=== PATIENT | female | born 1970 | race Caucasian/White ===

== ENCOUNTER 2018-11-19 14:07 | Emergency (ER) | payer BC, OTHER, SELFPAY ==
[~2018-11-19] VITALS: Ht 154.9 cm; Wt 77.6 kg
[2018-11-19 14:20] VITALS: BP 124/56
== END 2018-11-19 16:29 | disposition home or self-care (01) ==
LOC: ED 16:14
DX: S33.5XXA Sprain of ligaments of lumbar spine, initial encounter (principal); S39.012A Strain of muscle, fascia and tendon of lower back, initial encounter; X50.0XXA Overexertion from strenuous movement or load, initial encounter; Y93.89 Activity, other specified; Y92.89 Other specified places as the place of occurrence of the external cause; Y99.8 Other external cause status
CPT/HCPCS: 72110; 96372; 99283; J1885

== ENCOUNTER 2019-03-31 00:01 | Emergency (ER) | payer OTHER ==
[~2019-03-31] VITALS: Ht 154.9 cm; Wt 80.0 kg
--- NOTE | 2019-03-31 00:08 | NUR ---
EKG DONE IN TRIAGE
[2019-03-31] MEDS ORDERED: IBUPROFEN 600 MG TABLET PO ONE (01:30)
[2019-03-31 01:40] LABS: RAPID INFLUENZA A Negative (Negative); RAPID INFLUENZA B Negative (Negative)
[2019-03-31 01:53] VITALS: BP 115/78
[2019-03-31] MEDS ORDERED: IBUPROFEN 600 MG TABLET ONE (02:15)
== END 2019-03-31 03:03 | disposition home or self-care (01) ==
LOC: ED 02:53
DX: J00 Acute nasopharyngitis [common cold] (principal); J45.909 Unspecified asthma, uncomplicated; Z90.710 Acquired absence of both cervix and uterus
CPT/HCPCS: 71046; 87400; 93005; 99284

== ENCOUNTER 2019-05-17 13:29 | Emergency (ER) | payer OTHER ==
[~2019-05-17] VITALS: Ht 154.9 cm; Wt 97.5 kg
--- NOTE | 2019-05-17 13:55 | NUR ---
PT HERE WITH C/O C/P, COUGH, SOB, N/V/D, FATIGUE X 2 DAYS. PT AAO X 4, NAD, ROOM AIR, CALL LIGHT WITHIN REACH. PIV ESTABLISHED AND LABS DRAWN AND SENT. PT DRESSED IN GOWN AND ON FULL MONITOR. 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 SIDERAIL X [address] MD AT BEDSIDE FOR EXAM.
[2019-05-17] MEDS ORDERED: LORazepam 2 MG/ML, 1ML IVPush ONE (14:00)
[2019-05-17] MEDS ORDERED: SODIUM CHLORIDE FLUSH 10ML SYR IVF ONE (14:00)
[2019-05-17] MEDS ORDERED: KETOROLAC 30 MG/1 ML IVPush ONE (14:00)
--- NOTE | 2019-05-17 14:02 | NUR ---
PT BACK FROM RADIOLOGY.
[2019-05-17] MEDS ORDERED: KETOROLAC 30 MG/1 ML ONE (14:07)
[2019-05-17] MEDS ORDERED: LORazepam 2 MG/ML, 1ML ONE (14:08)
[2019-05-17 14:09] LABS: BASOPHILS # (AUTO) 0.03 x10^3/uL (0-0.1); BASOPHILS % (AUTO) 1 % (0-1); EOSINOPHILS # (AUTO) 0.15 x10^3/uL (0-0.4); EOSINOPHILS % (AUTO) 3 % (1-7); LYMPHOCYTES # (AUTO) 1.86 x10^3/uL (1-3.4); LYMPHOCYTES % (AUTO) 31 % (22-44); MD NO; MEAN CORPUSCULAR HEMOGLOBIN 32.1 pg (27.0-34.8); MEAN CORPUSCULAR HGB CONC 32.6 g/dL (32.4-35.8); MEAN CORPUSCULAR VOLUME 98.5 fL (80-100); MEAN PLATELET VOLUME 9.1 fL (7.4-10.4); MONOCYTES # (AUTO) 0.55 x10^3/uL (0.2-0.8); MONOCYTES % (AUTO) 9 % (2-9); NEUTROPHILS # (AUTO) 3.34 x10^3/uL (1.8-6.8); NEUTROPHILS % (AUTO) 56 % (42-75); PLATELET COUNT 325 x10^3/uL (130-400); RED BLOOD COUNT 4.19 x10^6/uL (3.82-5.3); RED CELL DISTRIBUTION WIDTH 14.3 % (9.6-15.2)
[2019-05-17 14:13] VITALS: BP 114/51
--- NOTE | 2019-05-17 14:16 | NUR ---
Break RN note: Pt medicated for pain per MAR, denies other needs.
[2019-05-17 14:20] LABS: ALANINE AMINOTRANSFERASE 20 U/L (12-78); ALBUMIN 4.1 g/dL (3.4-5.0); ANION GAP 7 mmol/L (5-15); CALCIUM 9.2 mg/dL (8.5-10.1); CHLORIDE 108 mmol/L (98-107)
[2019-05-17 14:25] LABS: ALKALINE PHOSPHATASE 56 U/L (45-117); BILIRUBIN,TOTAL 0.8 mg/dL (0.2-1.0); TOTAL PROTEIN 8.2 g/dL (6.4-8.2); TROPONIN I < 0.015 ng/mL (0.000-0.045)
--- NOTE | 2019-05-17 15:26 | NUR ---
ALL RESULTS BACK AT THIS TIME, CHART UP FOR RECHECK.
--- NOTE | 2019-05-17 16:01 | NUR ---
Patient/Caregiver given discharge instructions and they have confirmed that they understand the instructions. Patient ambulatory with steady gait.
== END 2019-05-17 16:11 | disposition home or self-care (01) ==
LOC: ED 16:05
DX: R07.89 Other chest pain (principal); R11.2 Nausea with vomiting, unspecified; R19.7 Diarrhea, unspecified; J45.909 Unspecified asthma, uncomplicated; Z90.710 Acquired absence of both cervix and uterus
CPT/HCPCS: 36415; 71046; 80053; 84484; 85025; 85379; 93005; 96374; 96375; 99285; J1885; J2060

== ENCOUNTER 2019-06-14 18:00 | Emergency (ER) | payer OTHER, SELFPAY ==
[~2019-06-14] VITALS: Ht 154.9 cm; Wt 80.0 kg
--- NOTE | 2019-06-14 18:39 | NUR ---
PT CAME IN CO OF COUGH, CHILLS, NAUSEA SINCE THIS MORNING. SAYS SHE CAME INTO CONTACT WITH SOMEONE WHO SAID THEY WERE POSITIVE FOR COVID-19. PT IS ON ISOLATIONG. FLU SWAB, STREP, COVID SWAB TAKEN. PT RESTING [facility].
[2019-06-14] MEDS ORDERED: ONDANSETRON ODT 8 MG ONE (18:59)
[2019-06-14] MEDS ORDERED: ACETAMINOPHEN 500 MG TABLET ONE (18:59)
[2019-06-14 19:00] LABS: BASOPHILS # (AUTO) 0.03 x10^3/uL (0-0.1); BASOPHILS % (AUTO) 1 % (0-1); EOSINOPHILS # (AUTO) 0.11 x10^3/uL (0-0.4); EOSINOPHILS % (AUTO) 2 % (1-7); LYMPHOCYTES % (AUTO) 25 % (22-44); MD NO; MEAN CORPUSCULAR HEMOGLOBIN 31.8 pg (27.0-34.8); MEAN CORPUSCULAR HGB CONC 33.5 g/dL (32.4-35.8); MEAN PLATELET VOLUME 8.8 fL (7.4-10.4); MONOCYTES # (AUTO) 0.49 x10^3/uL (0.2-0.8); MONOCYTES % (AUTO) 8 % (2-9); NEUTROPHILS # (AUTO) 4.15 x10^3/uL (1.8-6.8); NEUTROPHILS % (AUTO) 65 % (42-75); PLATELET COUNT 295 x10^3/uL (130-400); RED BLOOD COUNT 3.92 x10^6/uL (3.82-5.3); RED CELL DISTRIBUTION WIDTH 13.5 % (9.6-15.2)
[2019-06-14] MEDS ORDERED: ACETAMINOPHEN 500 MG TABLET PO ONE (19:00)
[2019-06-14] MEDS ORDERED: ONDANSETRON ODT 4 MG PO ONE (19:00)
[2019-06-14 19:12] LABS: ALBUMIN 3.8 g/dL (3.4-5.0); ANION GAP 8 mmol/L (5-15); CHLORIDE 108 mmol/L (98-107); CREATININE 0.72 mg/dL (0.55-1.02)
[2019-06-14 19:16] LABS: RAPID INFLUENZA A Negative (Negative); RAPID INFLUENZA B Negative (Negative)
[2019-06-14 19:57] VITALS: BP 112/52
== END 2019-06-14 19:59 | disposition home or self-care (01) ==
LOC: ED 19:40
DX: J06.9 Acute upper respiratory infection, unspecified (principal); Z20.828 Contact with and (suspected) exposure to other viral communicable diseases; M79.10 Myalgia, unspecified site; J45.909 Unspecified asthma, uncomplicated; F17.200 Nicotine dependence, unspecified, uncomplicated; Z90.710 Acquired absence of both cervix and uterus
CPT/HCPCS: 36415; 71045; 80048; 82040; 83605; 85025; 87081; 87400; 87486; 87581; 87633; 87798; 87880; 99284; Q0162

== ENCOUNTER 2019-10-17 08:54 | Emergency (ER) | payer SELFPAY ==
[~2019-10-17] VITALS: Ht 154.9 cm; Wt 86.0 kg
[2019-10-17] MEDS ORDERED: amberen (09:37)
[2019-10-17] MEDS ORDERED: MV,I66.7 PO (09:37)
[2019-10-17] MEDS ORDERED: GING250C PO (09:38)
[2019-10-17] MEDS ORDERED: MAGN400T36 PO (09:38)
[2019-10-17] MEDS ORDERED: MAALOX/HYOSCYAMINE/LIDOCAINE 45 ML BTL ONE (09:45)
[2019-10-17 10:23] LABS: BASOPHILS # (AUTO) 0.03 x10^3/uL (0-0.1); BASOPHILS % (AUTO) 1 % (0-1); EOSINOPHILS # (AUTO) 0.14 x10^3/uL (0-0.4); EOSINOPHILS % (AUTO) 2 % (1-7); LYMPHOCYTES % (AUTO) 28 % (22-44); MD NO; MEAN CORPUSCULAR HGB CONC 32.6 g/dL (32.4-35.8); MEAN CORPUSCULAR VOLUME 95.2 fL (80-100); MEAN PLATELET VOLUME 8.9 fL (7.4-10.4); MONOCYTES # (AUTO) 0.58 x10^3/uL (0.2-0.8); MONOCYTES % (AUTO) 9 % (2-9); NEUTROPHILS # (AUTO) 4.03 x10^3/uL (1.8-6.8); NEUTROPHILS % (AUTO) 60 % (42-75); PLATELET COUNT 272 x10^3/uL (130-400); RED BLOOD COUNT 4.13 x10^6/uL (3.82-5.3); RED CELL DISTRIBUTION WIDTH 13.9 % (9.6-15.2)
[2019-10-17] MEDS ORDERED: MAALOX/HYOSCYAMINE/LIDOCAINE 45 ML BTL PO ONE (10:30)
[2019-10-17 10:35] LABS: ALBUMIN 3.8 g/dL (3.4-5.0); ANION GAP 8 mmol/L (5-15); CALCIUM 9.1 mg/dL (8.5-10.1); CHLORIDE 110 mmol/L (98-107)
[2019-10-17 10:42] LABS: ALANINE AMINOTRANSFERASE 21 U/L (12-78); ALKALINE PHOSPHATASE 52 U/L (45-117); BILIRUBIN,TOTAL 0.5 mg/dL (0.2-1.0); CREATININE 0.72 mg/dL (0.55-1.02); TOTAL PROTEIN 7.4 g/dL (6.4-8.2); TROPONIN I < 0.015 ng/mL (0.000-0.045)
[2019-10-17 10:50] VITALS: BP 117/61
--- NOTE | 2019-10-17 10:55 | NUR ---
NOTIFIED MERCEDES HAWKINS THAT PATIENT REPORTED SOME RELIEF OF THE "TENSION" THAT SHE FELT IN HER CHEST/EPIGASTRUM BUT NO RELIEF OF THE BURNING SENSATION AND THAT PATIENT STILL FEELS SHORT OF BREATH. ROSS TO ORDER A RESPIRATORY TREATMENT. PATIENT UPDATED ON PLAN OF CARE AND IS APPRECIATIVE OF BREATHING TREATMENT.
[2019-10-17] MEDS ORDERED: ALBUTEROL SULFATE 2.5 MG/3 ML NPPB ONE (11:00)
[2019-10-17] MEDS ORDERED: ALBUTEROL SULFATE 2.5 MG/3 ML ONE (11:22)
--- NOTE | 2019-10-17 12:01 | NUR ---
NOTIFIED DR. ROMEO THAT AFTER BREATHING TREAMENT PATIENT STATES HER BREATHING FEELS BETTER BUT THE CHEST PAIN REMAINS.
--- NOTE | 2019-10-17 12:15 | NUR ---
Patient given discharge instructions and they have confirmed that they understand the instructions. Patient ambulatory with steady gait.
== END 2019-10-17 12:32 | disposition home or self-care (01) ==
LOC: ED 09:49
DX: J45.31 Mild persistent asthma with (acute) exacerbation (principal); Z20.828 Contact with and (suspected) exposure to other viral communicable diseases; R07.89 Other chest pain; R06.00 Dyspnea, unspecified
CPT/HCPCS: 36415; 71045; 80053; 84484; 85025; 87635; 93005; 94640; 99285; J7512; J7613

== ENCOUNTER 2020-01-28 19:40 | Emergency (ER) | payer SELFPAY ==
[~2020-01-28] VITALS: Ht 154.9 cm; Wt 81.9 kg
[~2020-01-28 19:40] MED LIST: GING250C PO; MAGN400T36 PO; MV,I66.7 PO; amberen
--- NOTE | 2020-01-28 20:28 | NUR ---
WORKS AT [employer], LEFT WORK FEELING BODY ACHES, COUGH, FEVER. VSS. WAITING FOR ERP EVAL.
--- NOTE | 2020-01-28 21:05 | NUR ---
VSS, NO FEVER, HR WNL. DEFER IV START UNTIL EVALUATED BY ERP.
[2020-01-28] MEDS ORDERED: ONDANSETRON ODT 4 MG ONE (21:12)
[2020-01-28 21:30] LABS: BASOPHILS % (AUTO) 1 % (0-1); EOSINOPHILS % (AUTO) 2 % (1-7); LYMPHOCYTES % (AUTO) 26 % (22-44); MEAN CORPUSCULAR HEMOGLOBIN 30.9 pg (27.0-34.8); MEAN CORPUSCULAR HGB CONC 32.8 g/dL (32.4-35.8); MEAN PLATELET VOLUME 8.9 fL (7.4-10.4); MONOCYTES % (AUTO) 21 % (2-9); NEUTROPHILS % (AUTO) 50 % (42-75); PLATELET COUNT 238 x10^3/uL (130-400); RED BLOOD COUNT 3.91 x10^6/uL (3.82-5.3); RED CELL DISTRIBUTION WIDTH 13.9 % (9.6-15.2)
[2020-01-28] MEDS ORDERED: ONDANSETRON ODT 4 MG PO ONE (21:30)
[2020-01-28] MEDS ORDERED: ALBUTEROL/IPRATROPIUM 2.5MG/0.5MG, 3 ML NPPB ONE (21:30)
[2020-01-28] MEDS ORDERED: KETOROLAC 30 MG/1 ML IM ONE (21:30)
[2020-01-28 21:37] LABS: ALANINE AMINOTRANSFERASE 23 U/L (12-78); ALBUMIN 3.8 g/dL (3.4-5.0); ANION GAP 4 mmol/L (5-15); CALCIUM 8.8 mg/dL (8.5-10.1); CHLORIDE 110 mmol/L (98-107); CREATININE 0.78 mg/dL (0.55-1.02)
[2020-01-28] MEDS ORDERED: ALBUTEROL/IPRATROPIUM 2.5MG/0.5MG, 3 ML ONE (21:39)
[2020-01-28 21:40] LABS: ALKALINE PHOSPHATASE 47 U/L (45-117); BILIRUBIN,TOTAL 0.3 mg/dL (0.2-1.0); TOTAL PROTEIN 7.1 g/dL (6.4-8.2)
[2020-01-28] MEDS ORDERED: KETOROLAC 30 MG/1 ML ONE (21:40)
[2020-01-28 21:45] LABS: TROPONIN I < 0.015 ng/mL (0.000-0.045)
[2020-01-28 21:54] LABS: MD SCAN
[2020-01-28 22:01] VITALS: BP 135/78
== END 2020-01-28 22:21 | disposition home or self-care (01) ==
LOC: ED 19:59
DX: J45.41 Moderate persistent asthma with (acute) exacerbation (principal); B34.9 Viral infection, unspecified; R07.89 Other chest pain; R50.9 Fever, unspecified; R06.02 Shortness of breath; R05 Cough; J02.9 Acute pharyngitis, unspecified; Z90.710 Acquired absence of both cervix and uterus
CPT/HCPCS: 36415; 71045; 80053; 83880; 84484; 85025; 93005; 94640; 96372; 99285; J1885; J7512; Q0162

== ENCOUNTER 2020-02-20 09:51 | Emergency (ER) | payer OTHER ==
[~2020-02-20] VITALS: Ht 154.9 cm; Wt 85.3 kg
[2020-02-20 10:01] VITALS: BP 132/71
== END 2020-02-20 10:53 | disposition home or self-care (01) ==
LOC: ED 10:49
DX: J45.909 Unspecified asthma, uncomplicated (principal); Z90.710 Acquired absence of both cervix and uterus
CPT/HCPCS: 99281

== ENCOUNTER 2020-06-21 10:39 | Emergency (ER) | payer OTHER ==
[~2020-06-21] VITALS: Ht 154.9 cm; Wt 80.3 kg
[2020-06-21] MEDS ORDERED: SODIUM CHLORIDE FLUSH 10ML SYR IVF ONE (11:00)
[2020-06-21] MEDS ORDERED: SODIUM CHLORIDE 0.9% 1,000ML IVBOLUS ONE ×2 (11:00→12:30)
[2020-06-21] MEDS ORDERED: ONDANSETRON 2MG/ML, 2ML IVPush ONE (11:00)
[2020-06-21] MEDS ORDERED: ONDANSETRON 2MG/ML, 2ML ONE (11:15)
--- NOTE | 2020-06-21 11:24 | NUR ---
THIS IS A 50 YO F W/ C/O LLQ ABD PAIN, N/V X2 DAYS. PIV STARTED, LABS DRAWN, PT MEDICATED PER EMAR. PT AMBULATED TO THE BR W/ A STEADY GAIT.
--- NOTE | 2020-06-21 11:26 | NUR ---
PT RETURNED TO ROOM W/O INCIDENT. RECONNECTED TO VS MONITORS. LIGHTS ADJUSTED FOR PT COMFORT. PT RESTING ON [email or web address] W/ CALL LIGHT IN REACH AND SIDE RAILS UPX2. RESP EVEN AND UNLABORED,
[2020-06-21 11:32] LABS: BASOPHILS % (AUTO) 1 % (0-1); EOSINOPHILS % (AUTO) 4 % (1-7); LYMPHOCYTES % (AUTO) 28 % (22-44); MD NO; MEAN CORPUSCULAR HEMOGLOBIN 32.2 pg (27.0-34.8); MEAN CORPUSCULAR HGB CONC 34.2 g/dL (32.4-35.8); MEAN PLATELET VOLUME 9.1 fL (7.4-10.4); MONOCYTES % (AUTO) 8 % (2-9); NEUTROPHILS % (AUTO) 59 % (42-75); PLATELET COUNT 247 x10^3/uL (130-400); RED BLOOD COUNT 3.82 x10^6/uL (3.82-5.3); RED CELL DISTRIBUTION WIDTH 13.4 % (9.6-15.2)
[2020-06-21 11:33] LABS: ALBUMIN 3.6 g/dL (3.4-5.0); ANION GAP 6 mmol/L (5-15); CALCIUM 8.9 mg/dL (8.5-10.1); CHLORIDE 110 mmol/L (98-107)
[2020-06-21 11:36] LABS: ALANINE AMINOTRANSFERASE 20 U/L (12-78); ALKALINE PHOSPHATASE 41 U/L (45-117); BILIRUBIN,TOTAL 0.6 mg/dL (0.2-1.0); CREATININE 0.77 mg/dL (0.55-1.02); TOTAL PROTEIN 7.2 g/dL (6.4-8.2)
[2020-06-21 11:40] LABS: MICROSCOPIC INDICATED
--- NOTE | 2020-06-21 12:03 | NUR ---
ALL TESTS RESULTED. PT IS UP FOR RECHECK AT THIS TIME.
--- NOTE | 2020-06-21 12:31 | NUR ---
2ND L BOLUS STARTED PER EMAR. PT PROVIDED W/ WARM BLANKET PER PT REQUEST. UPDATED ON PLAN OF CT. AWAITING CT. RESP EVEN AND UNLABORED, ЕКАТЕРИНА.
[2020-06-21] MEDS ORDERED: OMNIPAQUE 350 MG/ML, 100ML BOTTLE ONE (12:50)
--- NOTE | 2020-06-21 13:03 | NUR ---
ALL TESTS RESULTED, PT IS UP FOR RECHECK AT THIS TIME.
--- NOTE | 2020-06-21 13:08 | NUR ---
break RN: assumed care of p on behal of primary RN for lunch break only. pt sitin up on gurney in position of comfort. no apparent distress. using cell phone. chart up for MD recheck
[2020-06-21 14:22] VITALS: BP 106/62
--- NOTE | 2020-06-21 14:36 | NUR ---
Patient given discharge instructions and they have confirmed that they understand the instructions. Patient ambulatory with steady gait.
== END 2020-06-21 14:37 | disposition home or self-care (01) ==
LOC: ED 12:06
DX: R10.32 Left lower quadrant pain (principal); R11.2 Nausea with vomiting, unspecified; R10.9 Unspecified abdominal pain
CPT/HCPCS: 36415; 74177; 80053; 81001; 85025; 87086; 96361; 96374; 99285; J2405; J7030; Q9967

== ENCOUNTER 2020-10-03 13:54 | Emergency (ER) | payer SELFPAY ==
[~2020-10-03] VITALS: Ht 154.9 cm; Wt 79.4 kg
--- NOTE | 2020-10-03 14:44 | NUR ---
URINE COLLECTED AND SENT.
[2020-10-03 15:04] LABS: MICROSCOPIC NOT IND
--- NOTE | 2020-10-03 15:14 | NUR ---
CC OF LLQ ABD PAIN 810 SINCE YESTERDAY. PT REPORTS "IT FEELS LIKE MY INSIDE ARE FALLING OUT AND I HAVE TO POOP BUT IM HAVING NORMAL BM AND NO ISSUES PEEING". ALSO REPORTS INTOLERANCE TO DAIRY AND HAD SOUR CREAM FEW DAYS AGO. STATES IT FEELS "SIMIALR" TO THAT BUT WORSE.
[2020-10-03] MEDS ORDERED: FAMOTIDINE 20 MG/2 ML ONE (15:48)
[2020-10-03] MEDS ORDERED: ONDANSETRON 2MG/ML, 2ML ONE (15:48)
[2020-10-03 15:57] LABS: BASOPHILS % (AUTO) 1 % (0-1); EOSINOPHILS % (AUTO) 2 % (1-7); LYMPHOCYTES % (AUTO) 27 % (22-44); MEAN CORPUSCULAR HEMOGLOBIN 32.3 pg (27.0-34.8); MEAN PLATELET VOLUME 9.3 fL (7.4-10.4); MONOCYTES % (AUTO) 9 % (2-9); NEUTROPHILS % (AUTO) 61 % (42-75); PLATELET COUNT 247 x10^3/uL (130-400); RED BLOOD COUNT 4.02 x10^6/uL (3.82-5.3); RED CELL DISTRIBUTION WIDTH 13.6 % (9.6-15.2)
[2020-10-03] MEDS ORDERED: ONDANSETRON 2MG/ML, 2ML IVPush ONE (16:00)
[2020-10-03] MEDS ORDERED: SODIUM CHLORIDE 0.9% 1,000ML IVBOLUS ONE (16:00)
[2020-10-03] MEDS ORDERED: FAMOTIDINE 20 MG/2 ML IVPush ONE (16:00)
[2020-10-03 16:08] LABS: ALANINE AMINOTRANSFERASE 21 U/L (12-78); ALBUMIN 3.8 g/dL (3.4-5.0); ANION GAP 5 mmol/L (5-15); CALCIUM 8.8 mg/dL (8.5-10.1); CHLORIDE 108 mmol/L (98-107)
[2020-10-03 16:10] LABS: ALKALINE PHOSPHATASE 54 U/L (45-117); BILIRUBIN,TOTAL 0.5 mg/dL (0.2-1.0); CREATININE 0.71 mg/dL (0.55-1.02); TOTAL PROTEIN 7.7 g/dL (6.4-8.2)
[2020-10-03] MEDS ORDERED: MORPHINE SULFATE 4 MG/ML, 1ML IVPush PRN (17:30)
[2020-10-03] MEDS ORDERED: OMNIPAQUE 350 MG/ML, 100ML BOTTLE ONE (17:37)
--- NOTE | 2020-10-03 17:45 | NUR ---
PT REQUEST NO NARCOTICS DUE TO ADDICTION IN PAST. NOTIFIED, WILL ORDER TORADOL.
[2020-10-03] MEDS ORDERED: KETOROLAC 15 MG/1ML IVPush ONE (18:00)
[2020-10-03] MEDS ORDERED: KETOROLAC 30 MG/1 ML ONE (18:06)
[2020-10-03 18:37] VITALS: BP 134/77
== END 2020-10-03 18:39 | disposition home or self-care (01) ==
LOC: ED 14:24
DX: R10.32 Left lower quadrant pain (principal); R11.2 Nausea with vomiting, unspecified
CPT/HCPCS: 36415; 74177; 80053; 81003; 83690; 85025; 96361; 96374; 96375; 99285; J1885; J2405; J7030; Q9967